=== PATIENT | female | born 1995 | race American Indian/Alaskan Native ===

== ENCOUNTER 2017-12-13 13:42 | Emergency (ER) | payer BC, MEDICAID, OTHER ==
--- NOTE | 2017-12-14 08:02 | EDM.PDOC ---
Scribed by Sarah Zapata 12/13/17 [id number] for Jazmine Rhodes NP ED HPI GENERAL MEDICAL PROBLEM - General Chief Complaint: Lower Extremity Injury/Pain Stated Complaint: [id number] LANDED WRONG FALLING DOWN STEPS Time Seen by Provider: 12/13/17 14:30 Source of Information: Reports: Patient, RN, RN Notes Reviewed History Limitations: Reports: No Limitations - History of Present Illness INITIAL COMMENTS - FREE TEXT/NARRATIVE: Patient to ER with complaint of right foot pain. States she is unable to walk. Patient did walk into the department. Patient states she missed a step and hurt the right foot. Patient states the foot is throbbing. Rates pain 8-9/10 without stepping on it. Pain is 10/10 with bearing weight. Onset: Today Location: Reports: Lower Extremity, Right Quality: Reports: Ache Severity: Moderate Improves with: Reports: None Worsens with: Reports: None Associated Symptoms: Reports: No Other Symptoms Right Ankle Pain Score (Numeric/FACES): 8 - Related Data Allergies Allergy/AdvReac Type Severity Reaction Status Date / Time No Known Allergies Allergy Verified 12/13/17 14:27 Home Meds: Home Meds . [No Known Home Meds] 12/13/17 [History] Past Medical History - Past Surgical History HEENT Surgical History: Reports: Other (See Below) Other HEENT Surgeries/Procedures: removal of cyst on neck Social & Family History - Tobacco Use Smoking Status *Q: Current Every Day Smoker Years of Tobacco use: 4 Packs/Tins Daily: 0.2 - Caffeine Use Caffeine Use: Reports: Soda - Recreational Drug Use Recreational Drug Use: No Review of Systems - Review of Systems Review Of Systems: ROS reveals no pertinent complaints other than HPI. ED EXAM, GENERAL - Physical Exam Exam: See Below Exam Limited By: No Limitations General Appearance: Alert, WD/WN, No Apparent Distress Eye Exam: Bilateral Eye: Normal Inspection Ears: Normal External Exam, Normal Canal, Hearing Grossly Normal, Normal TMs Nose: Normal Inspection, Normal Mucosa, No Blood Throat/Mouth: Normal Inspection, Normal Lips, Normal Teeth, Normal Gums, Normal Oropharynx, Normal Voice, No Airway Compromise Head: Atraumatic, Normocephalic Neck: Normal Inspection, Supple, Non-Tender, Full Range of Motion Respiratory/Chest: No Respiratory Distress, Lungs Clear, Normal Breath Sounds, No Accessory Muscle Use, Chest Non-Tender Cardiovascular: Normal Peripheral Pulses, Regular Rate, Rhythm, No Edema, No Gallop, No JVD, No Murmur, No Rub GI/Abdominal: Normal Bowel Sounds, Soft, Non-Tender, No Organomegaly, No Distention, No Abnormal Bruit, No Mass (Female) Exam: Deferred Rectal (Female) Exam: Deferred Back Exam: Normal Inspection, Full Range of Motion, NT Extremities: Other (right foot swelling) Neurological: Alert, Oriented, CN II-XII Intact, Normal Cognition, Normal Gait, Normal Reflexes, No Motor/Sensory Deficits Psychiatric: Normal Affect, Normal Mood Skin Exam: Warm, Dry, Intact, Normal Color, No Rash Lymphatic: No Adenopathy Course - Vital Signs Last Recorded V/S: Last Vital Signs Temp 35.9 C 12/13/17 15:50 Pulse 71 12/13/17 15:50 Resp 14 12/13/17 15:50 BP 125/85 12/13/17 15:50 Pulse Ox 100 12/13/17 15:50 - Radiology Interpretation Free Text/Narrative:: X-ray right ankle: Fracture of the base of the fifth metatarsal is present. Minimal displacement is present. No other fractures or dislocations. See rad report. Departure - Departure Time of Disposition: 16:20 Disposition: Home, Self-Care 01 Condition: Fair Clinical Impression: Fracture of fifth metatarsal bone of right foot Qualifiers: Encounter type: initial encounter Fracture type: closed Fracture alignment: displaced Qualified Code(s): S92.351A - Displaced fracture of fifth metatarsal bone, right foot, initial encounter for closed fracture - Discharge Information Instructions: Cast or Splint Care, Adult, [id number], Metatarsal Fracture Forms: ED Department Discharge Additional Instructions: Follow up with ortho in [facility]. Call Friday morning to make an appointment. [phone], ask for ortho department. Tell them that you were seen in the ER and have broken the 5th metatarsal on the right foot. Tell them you are to follow up with an ortho Doctor. Elevate when possible Ice when possible May use tylenol and/or ibuprofen as directed for pain Use Cam boot at all times when weight bearing. I have read and agree with the documentation that has been completed regarding this visit. By signing this record, I attest that the documentation was completed in my physical presence and is an accurate record of the encounter.
== END 2017-12-13 16:43 | disposition home or self-care (01) ==
LOC: DL.ED 13:42
DX: S92.351A Displaced fracture of fifth metatarsal bone, right foot, initial encounter for closed fracture (principal); F17.210 Nicotine dependence, cigarettes, uncomplicated; W10.9XXA Fall (on) (from) unspecified stairs and steps, initial encounter
CPT/HCPCS: 73610-RT; 99284

== ENCOUNTER 2018-07-17 22:09 | Emergency (ER) | payer BC, OTHER ==
--- NOTE | 2018-07-17 23:18 | EDM.PDOC ---
ED HPI GENERAL MEDICAL PROBLEM - General Chief Complaint: [employer] Problem Stated Complaint: PERSONAL [id number] Time Seen by Provider: 07/17/18 23:15 Source of Information: Reports: Patient History Limitations: Reports: No Limitations - History of Present Illness INITIAL COMMENTS - FREE TEXT/NARRATIVE: states LMP 11-18, got + home preg test, tonight at work started having some cramping & bleeding not getting better. denies lightheaded dizz. states [id number] , last year had 8 week miscarriage. states first clot was soft ball size then went to bathroom noticed more blood in bowl. Lower Abdomen Pain Score (Numeric/FACES): 5 - Related Data Allergies Allergy/AdvReac Type Severity Reaction Status Date / Time cephalexin [From Keflex] Allergy Hives Verified 07/17/18 22:33 Home Meds: Home Meds . [No Known Home Meds] 12/13/17 [History] Past Medical History [employer] History: Reports: , Spontaneous - Past Surgical History HEENT Surgical History: Reports: Other (See Below) Other HEENT Surgeries/Procedures: removal of cyst on neck Social & Family History - Tobacco Use Smoking Status *Q: Never Smoker - Caffeine Use Caffeine Use: Reports: None - Recreational Drug Use Recreational Drug Use: No ED ROS GENERAL - Review of Systems Review Of Systems: ROS reveals no pertinent complaints other than HPI. ED EXAM - Physical Exam Exam: See Below Exam Limited By: No Limitations General Appearance: Alert, WD/WN, Mild Distress, Other (upset) Ears: Hearing Grossly Normal Throat/Mouth: Normal Voice, No Airway Compromise Head: Atraumatic Neck: Non-Tender, Full Range of Motion Respiratory/Chest: No Respiratory Distress Cardiovascular: Regular Rate, Rhythm GI/Abdominal Exam: Soft, Tender, Other (minimal low a bd discomfort). No: Distended, Guarding, Rigid, Rebound Neurological: Alert, Oriented, Normal Cognition, Normal Gait, No Motor/Sensory Deficits Psychiatric: Flat Affect Skin Exam: Warm, Dry, Normal Color Lymphatic: No Adenopathy Course - Vital Signs Last Recorded V/S: Last Vital Signs Temp 35.8 C 07/17/18 22:22 Pulse 91 07/17/18 22:22 Resp 19 07/17/18 22:22 BP 118/76 07/17/18 22:22 Pulse Ox 99 07/17/18 22:22 - Orders/Labs/Meds Labs: Laboratory Tests 07/17/18 07/17/18 07/17/18 Range/Units 22:55 22:55 22:55 WBC 10.4 H (5.0-10.0) 10^3/uL RBC 4.74 (4.2-5.4) 10^6/uL Hgb 13.1 (12.0-16.0) g/dL Hct 38.5 (37.0-47.0) % MCV 81.2 (80-100) fL MCH 27.6 (27.0-34.0) pg MCHC 34.0 (33.0-35.0) g/dL Plt Count 435 (150-450) 10^3/uL Neut % (Auto) 69.6 (42.2-75.2) % Lymph % (Auto) 24.8 (20.5-50.1) % Pierce % (Auto) 4.3 (2-8) % Eos % (Auto) 1.1 (1.0-3.0) % Baso % (Auto) 0.2 (0.0-1.0) % Sodium 135 (135-145) mmol/L Potassium 3.1 L (3.6-5.0) mmol/L Chloride 103 (101-111) mmol/L Carbon Dioxide 21.0 (21.0-31.0) mmol/L Anion Gap 14.1 BUN 5 L (7-18) mg/dL Creatinine 0.6 (0.6-1.3) mg/dL Est Cr Clr Drug Dosing 136.51 mL/min Estimated GFR (MDRD) > 60 BUN/Creatinine Ratio 8.33 Glucose 102 (74-105) mg/dL Calcium 8.8 (8.4-10.2) mg/dl Total Bilirubin 0.7 (0.2-1.0) mg/dL AST 72 H (10-42) IU/L ALT 149 H (10-60) IU/L Alkaline Phosphatase 137 H (42-121) IU/L Total Protein 7.3 (6.7-8.2) g/dl Albumin 3.7 (3.2-5.5) g/dl Globulin 3.6 Albumin/Globulin Ratio 1.03 HCG, Quant > 1397.0 Beta HCG, Quant [id number] mIU/ml - Re-Assessments/Exams Free Text/Narrative Re-Assessment/Exam: 07/18/18 00:15 results discussed with pt who states no further bleeding now but still has some cramps. case discussed with Dr Quiros who rec' U.S but since it's not available this weekend and pt's condition has improved then it may be delayed till AM unless bleeding & cramping worsens. pt agrees with decision since she really doesn't want to go to [facility]. but will definitely return if problem worsens tonight. Departure - Departure Time of Disposition: 00:33 Disposition: Home, Self-Care 01 Condition: Good Clinical Impression: First trimester bleeding - Discharge Information Instructions: Vaginal Bleeding During , First Trimester, [id number] Forms: ED Department Discharge Additional Instructions: 1) rest and avoid vigorous activity 2) return if increase bleeding and cramping 3) if none then see Dr Cano Friday
[2018-07-17 23:24] LABS: ANION GAP 14.1; CHLORIDE,CL 103 mmol/L (101-111); SODIUM,NA 135 mmol/L (135-145)
== END 2018-07-18 00:48 | disposition home or self-care (01) ==
LOC: DL.ED 22:09
DX: O20.9 Hemorrhage in early pregnancy, unspecified (principal); Z88.1 Allergy status to other antibiotic agents
CPT/HCPCS: 36415; 80053; 84702; 85025; 99284

== ENCOUNTER → 2020-04-23 01:15 | Emergency (ER) | payer MEDICAID | END | disposition left against medical advice (07) | LOC: DL.ED 01:15 | DX: Z53.21 Procedure and treatment not carried out due to patient leaving prior to being seen by health care provider (principal) | CPT/HCPCS: 80305-QW; 81001; 81025; 87086; 87088; 87186 ==